=== PATIENT | female | born 1930 | race Caucasian/White ===

== ENCOUNTER → 2020-05-19 | Outpatient (CLI) | payer OTHER | LOC: HYPER 09:24 | PROVIDERS: ATTEND Specialist | DX: S81.812A Laceration without foreign body, left lower leg, initial encounter (principal); S80.12XA Contusion of left lower leg, initial encounter; R60.0 Localized edema; E03.9 Hypothyroidism, unspecified; G89.11 Acute pain due to trauma; G89.29 Other chronic pain; I10 Essential (primary) hypertension; I73.9 Peripheral vascular disease, unspecified; I87.2 Venous insufficiency (chronic) (peripheral); M17.0 Bilateral primary osteoarthritis of knee; M85.80 Other specified disorders of bone density and structure, unspecified site; Z87.891 Personal history of nicotine dependence; Z90.710 Acquired absence of both cervix and uterus; Z98.41 Cataract extraction status, right eye; Z98.42 Cataract extraction status, left eye; Z85.3 Personal history of malignant neoplasm of breast; Z96.653 Presence of artificial knee joint, bilateral ==

== ENCOUNTER → 2020-05-26 | Outpatient (CLI) | payer OTHER | LOC: HYPER 10:14 | PROVIDERS: ATTEND Emergency Medicine | DX: S81.812D Laceration without foreign body, left lower leg, subsequent encounter (principal); S80.12XD Contusion of left lower leg, subsequent encounter; R60.0 Localized edema; E03.9 Hypothyroidism, unspecified; G89.11 Acute pain due to trauma; G89.29 Other chronic pain; I10 Essential (primary) hypertension; I73.9 Peripheral vascular disease, unspecified; I87.2 Venous insufficiency (chronic) (peripheral); M17.0 Bilateral primary osteoarthritis of knee; M85.80 Other specified disorders of bone density and structure, unspecified site; Z87.891 Personal history of nicotine dependence; Z90.710 Acquired absence of both cervix and uterus; Z98.41 Cataract extraction status, right eye; Z98.42 Cataract extraction status, left eye; Z85.3 Personal history of malignant neoplasm of breast; Z96.653 Presence of artificial knee joint, bilateral ==

== ENCOUNTER → 2020-06-09 | Outpatient (CLI) | payer OTHER | LOC: HYPER 10:39 | PROVIDERS: ATTEND Specialist | DX: S81.812D Laceration without foreign body, left lower leg, subsequent encounter (principal); S80.12XD Contusion of left lower leg, subsequent encounter; L97.822 Non-pressure chronic ulcer of other part of left lower leg with fat layer exposed; R60.0 Localized edema; E03.9 Hypothyroidism, unspecified; G89.11 Acute pain due to trauma; G89.29 Other chronic pain; I10 Essential (primary) hypertension; I73.9 Peripheral vascular disease, unspecified; I87.2 Venous insufficiency (chronic) (peripheral); M17.0 Bilateral primary osteoarthritis of knee; M85.80 Other specified disorders of bone density and structure, unspecified site; Z87.891 Personal history of nicotine dependence; Z90.710 Acquired absence of both cervix and uterus; Z98.41 Cataract extraction status, right eye; Z98.42 Cataract extraction status, left eye; Z85.3 Personal history of malignant neoplasm of breast; Z96.653 Presence of artificial knee joint, bilateral; Y93.39 Activity, other involving climbing, rappelling and jumping off ==

== ENCOUNTER → 2020-06-16 | Outpatient (CLI) | payer OTHER | LOC: HYPER 08:35 | PROVIDERS: ATTEND Specialist | DX: S81.812D Laceration without foreign body, left lower leg, subsequent encounter (principal); S80.12XD Contusion of left lower leg, subsequent encounter; L97.822 Non-pressure chronic ulcer of other part of left lower leg with fat layer exposed; R60.0 Localized edema; E03.9 Hypothyroidism, unspecified; G89.11 Acute pain due to trauma; G89.29 Other chronic pain; I10 Essential (primary) hypertension; I73.9 Peripheral vascular disease, unspecified; I87.2 Venous insufficiency (chronic) (peripheral); M17.0 Bilateral primary osteoarthritis of knee; M85.80 Other specified disorders of bone density and structure, unspecified site; Z87.891 Personal history of nicotine dependence; Z98.41 Cataract extraction status, right eye; Z98.42 Cataract extraction status, left eye; Y93.39 Activity, other involving climbing, rappelling and jumping off; Z85.3 Personal history of malignant neoplasm of breast ==

== ENCOUNTER → 2020-06-23 | Outpatient (CLI) | payer OTHER | LOC: HYPER 09:55 | PROVIDERS: ATTEND Specialist | DX: S81.812D Laceration without foreign body, left lower leg, subsequent encounter (principal); L97.822 Non-pressure chronic ulcer of other part of left lower leg with fat layer exposed; I87.2 Venous insufficiency (chronic) (peripheral); I73.9 Peripheral vascular disease, unspecified; R60.0 Localized edema; G89.11 Acute pain due to trauma; B36.9 Superficial mycosis, unspecified; G89.29 Other chronic pain; E03.9 Hypothyroidism, unspecified; M85.80 Other specified disorders of bone density and structure, unspecified site; I10 Essential (primary) hypertension; M17.0 Bilateral primary osteoarthritis of knee; Z86.000 Personal history of in-situ neoplasm of breast; Z87.891 Personal history of nicotine dependence; Z79.899 Other long term (current) drug therapy; Z90.710 Acquired absence of both cervix and uterus; Z98.41 Cataract extraction status, right eye; Z98.42 Cataract extraction status, left eye; Z96.653 Presence of artificial knee joint, bilateral; Z90.11 Acquired absence of right breast and nipple; V58.4XXD Person boarding or alighting a pick-up truck or van injured in noncollision transport accident, subsequent encounter ==

== ENCOUNTER → 2020-07-07 | Outpatient (CLI) | payer OTHER | LOC: HYPER 09:57 | PROVIDERS: ATTEND Specialist | DX: S81.812D Laceration without foreign body, left lower leg, subsequent encounter (principal); S80.12XD Contusion of left lower leg, subsequent encounter; L97.822 Non-pressure chronic ulcer of other part of left lower leg with fat layer exposed; L20.9 Atopic dermatitis, unspecified; I87.2 Venous insufficiency (chronic) (peripheral); I73.9 Peripheral vascular disease, unspecified; R60.0 Localized edema; G89.11 Acute pain due to trauma; B36.9 Superficial mycosis, unspecified; G89.29 Other chronic pain; E03.9 Hypothyroidism, unspecified; M85.80 Other specified disorders of bone density and structure, unspecified site; I10 Essential (primary) hypertension; M17.0 Bilateral primary osteoarthritis of knee; Z87.891 Personal history of nicotine dependence; Z98.41 Cataract extraction status, right eye; Z98.42 Cataract extraction status, left eye; Z85.3 Personal history of malignant neoplasm of breast; V58.4XXD Person boarding or alighting a pick-up truck or van injured in noncollision transport accident, subsequent encounter ==

== ENCOUNTER → 2020-07-14 | Outpatient (CLI) | payer OTHER | LOC: HYPER 10:08 | PROVIDERS: ATTEND Specialist | DX: S81.812D Laceration without foreign body, left lower leg, subsequent encounter (principal); S80.12XD Contusion of left lower leg, subsequent encounter; L97.822 Non-pressure chronic ulcer of other part of left lower leg with fat layer exposed; L20.9 Atopic dermatitis, unspecified; I87.2 Venous insufficiency (chronic) (peripheral); I73.9 Peripheral vascular disease, unspecified; R60.0 Localized edema; G89.11 Acute pain due to trauma; B36.9 Superficial mycosis, unspecified; G89.29 Other chronic pain; E03.9 Hypothyroidism, unspecified; M85.80 Other specified disorders of bone density and structure, unspecified site; I10 Essential (primary) hypertension; M17.0 Bilateral primary osteoarthritis of knee; Z87.891 Personal history of nicotine dependence; Z98.41 Cataract extraction status, right eye; Z98.42 Cataract extraction status, left eye; Z85.3 Personal history of malignant neoplasm of breast; V58.4XXD Person boarding or alighting a pick-up truck or van injured in noncollision transport accident, subsequent encounter ==

== ENCOUNTER → 2020-07-21 | Outpatient (CLI) | payer OTHER | LOC: HYPER 10:15 | PROVIDERS: ATTEND Specialist | DX: S81.812D Laceration without foreign body, left lower leg, subsequent encounter (principal); S80.12XD Contusion of left lower leg, subsequent encounter; L97.822 Non-pressure chronic ulcer of other part of left lower leg with fat layer exposed; L20.9 Atopic dermatitis, unspecified; I87.2 Venous insufficiency (chronic) (peripheral); I73.9 Peripheral vascular disease, unspecified; R60.0 Localized edema; G89.11 Acute pain due to trauma; B36.9 Superficial mycosis, unspecified; G89.29 Other chronic pain; E03.9 Hypothyroidism, unspecified; M85.80 Other specified disorders of bone density and structure, unspecified site; I10 Essential (primary) hypertension; M17.0 Bilateral primary osteoarthritis of knee; Z87.891 Personal history of nicotine dependence; Z98.41 Cataract extraction status, right eye; Z98.42 Cataract extraction status, left eye; Z85.3 Personal history of malignant neoplasm of breast; V58.4XXD Person boarding or alighting a pick-up truck or van injured in noncollision transport accident, subsequent encounter ==

== ENCOUNTER → 2020-07-28 | Outpatient (CLI) | payer OTHER | LOC: HYPER 09:43 | PROVIDERS: ATTEND Specialist | DX: S81.812D Laceration without foreign body, left lower leg, subsequent encounter (principal); S80.12XD Contusion of left lower leg, subsequent encounter; L97.822 Non-pressure chronic ulcer of other part of left lower leg with fat layer exposed; L20.9 Atopic dermatitis, unspecified; I87.2 Venous insufficiency (chronic) (peripheral); I73.9 Peripheral vascular disease, unspecified; R60.0 Localized edema; G89.11 Acute pain due to trauma; B36.9 Superficial mycosis, unspecified; G89.29 Other chronic pain; E03.9 Hypothyroidism, unspecified; M85.80 Other specified disorders of bone density and structure, unspecified site; I10 Essential (primary) hypertension; M17.0 Bilateral primary osteoarthritis of knee; Z87.891 Personal history of nicotine dependence; Z98.41 Cataract extraction status, right eye; Z98.42 Cataract extraction status, left eye; Z85.3 Personal history of malignant neoplasm of breast; V58.4XXD Person boarding or alighting a pick-up truck or van injured in noncollision transport accident, subsequent encounter ==

== ENCOUNTER → 2020-08-04 | Outpatient (CLI) | payer OTHER | LOC: HYPER 10:06 | PROVIDERS: ATTEND Specialist | DX: S81.812D Laceration without foreign body, left lower leg, subsequent encounter (principal); S80.12XD Contusion of left lower leg, subsequent encounter; L97.822 Non-pressure chronic ulcer of other part of left lower leg with fat layer exposed; L84 Corns and callosities; L20.9 Atopic dermatitis, unspecified; I87.2 Venous insufficiency (chronic) (peripheral); I73.9 Peripheral vascular disease, unspecified; R60.0 Localized edema; G89.11 Acute pain due to trauma; B36.9 Superficial mycosis, unspecified; G89.29 Other chronic pain; E03.9 Hypothyroidism, unspecified; M85.80 Other specified disorders of bone density and structure, unspecified site; I10 Essential (primary) hypertension; M17.0 Bilateral primary osteoarthritis of knee; Z87.891 Personal history of nicotine dependence; Z98.41 Cataract extraction status, right eye; Z98.42 Cataract extraction status, left eye; Z85.3 Personal history of malignant neoplasm of breast; V58.4XXD Person boarding or alighting a pick-up truck or van injured in noncollision transport accident, subsequent encounter ==

== ENCOUNTER → 2020-08-18 | Outpatient (CLI) | payer OTHER | LOC: HYPER 09:54 | PROVIDERS: ATTEND Specialist | DX: S81.812D Laceration without foreign body, left lower leg, subsequent encounter (principal); S80.12XD Contusion of left lower leg, subsequent encounter; L97.822 Non-pressure chronic ulcer of other part of left lower leg with fat layer exposed; L84 Corns and callosities; L20.9 Atopic dermatitis, unspecified; I87.2 Venous insufficiency (chronic) (peripheral); I73.9 Peripheral vascular disease, unspecified; R60.0 Localized edema; G89.11 Acute pain due to trauma; B36.9 Superficial mycosis, unspecified; G89.29 Other chronic pain; E03.9 Hypothyroidism, unspecified; M85.80 Other specified disorders of bone density and structure, unspecified site; I10 Essential (primary) hypertension; M17.0 Bilateral primary osteoarthritis of knee; Z87.891 Personal history of nicotine dependence; Z98.41 Cataract extraction status, right eye; Z98.42 Cataract extraction status, left eye; Z85.3 Personal history of malignant neoplasm of breast; V58.4XXD Person boarding or alighting a pick-up truck or van injured in noncollision transport accident, subsequent encounter ==

== ENCOUNTER → 2020-09-08 | Outpatient (CLI) | payer OTHER | LOC: HYPER 09:59 | PROVIDERS: ATTEND Specialist | DX: S81.812D Laceration without foreign body, left lower leg, subsequent encounter (principal); S80.12XD Contusion of left lower leg, subsequent encounter; L97.822 Non-pressure chronic ulcer of other part of left lower leg with fat layer exposed; L84 Corns and callosities; L20.9 Atopic dermatitis, unspecified; I87.2 Venous insufficiency (chronic) (peripheral); I73.9 Peripheral vascular disease, unspecified; R60.0 Localized edema; G89.11 Acute pain due to trauma; B36.9 Superficial mycosis, unspecified; G89.29 Other chronic pain; E03.9 Hypothyroidism, unspecified; M85.80 Other specified disorders of bone density and structure, unspecified site; I10 Essential (primary) hypertension; M17.0 Bilateral primary osteoarthritis of knee; Z87.891 Personal history of nicotine dependence; Z98.41 Cataract extraction status, right eye; Z98.42 Cataract extraction status, left eye; Z85.3 Personal history of malignant neoplasm of breast; V58.4XXD Person boarding or alighting a pick-up truck or van injured in noncollision transport accident, subsequent encounter ==